=== PATIENT | male | born 1995 | race Caucasian/White ===

== ENCOUNTER 2017-10-03 12:43 | Day surgery (SDC) | payer BC ==
[~2017-10-03 12:43] MED LIST: LACTATED RINGER'S 1,000 ML IV*; ROCURONIUM 50 MG INJ
[2017-10-03] MEDS ORDERED: FENTAnyl 50 MCG/ML VIAL ×2 (13:48→15:58)
[2017-10-03] MEDS ORDERED: ROCURONIUM 50 MG INJ (13:48)
[2017-10-03] MEDS ORDERED: PROPOFOL 20 ML (13:48)
[2017-10-03] MEDS ORDERED: MIDAZOLAM 1 MG/ML 2 ML INJ (13:49)
[2017-10-03] MEDS ORDERED: MEPERIDINE 25 MG INJ IV (14:00)
[2017-10-03] MEDS ORDERED: HYDROmorphONE 1 MG/5 ML IV SYRINGE IV ×3 (14:00)
[2017-10-03] MEDS ORDERED: OXYCODONE/ACETAMINOPHEN (5/325) TAB PO ×2 (14:00)
[2017-10-03] MEDS ORDERED: ONDANSETRON 4 MG INJ IV (14:00)
[2017-10-03] MEDS ORDERED: EPHEDrine SULFATE 50 MG/5 ML SYG IV (14:00)
[2017-10-03] MEDS ORDERED: METOCLOPRAMIDE 10 MG INJ IV (14:00)
[2017-10-03] MEDS ORDERED: FENTAnyl 50 MCG/ML VIAL IV ×3 (14:00)
[2017-10-03] MEDS ORDERED: DIPHENHYDRAMINE 50 MG INJ IV (14:00)
[2017-10-03] MEDS ORDERED: ONDANSETRON 4 MG INJ ×2 (15:16→16:39)
[2017-10-03] MEDS ORDERED: METOCLOPRAMIDE 10 MG INJ (15:16)
[2017-10-03] MEDS ORDERED: DEXAMETHASONE 4 MG/ML 1 ML INJ (15:16)
[2017-10-03] MEDS ORDERED: ACETAMINOPHEN 1000MG/100ML IV 100 ML (15:17)
[2017-10-03] MEDS ORDERED: SUGAMMADEX SODIUM 200 MG/2 ML VIAL IV (15:17)
[2017-10-03] MEDS ORDERED: KETOROLAC 30 MG INJ ×2 (15:17→15:59)
[2017-10-03] MEDS ORDERED: OXYMETAZOLINE 0.05% 15 ML NAS SPRAY NASAL (15:20)
[2017-10-03] MEDS: LIDOCAINE 1%/EPI 30 ML INJ (15:25)
== END 2017-10-03 17:56 | disposition home or self-care (01) ==
LOC: SDS 12:43
DX: J32.8 Other chronic sinusitis (principal); J34.2 Deviated nasal septum; J34.89 Other specified disorders of nose and nasal sinuses
CPT/HCPCS: 30140; 88300; 88304